=== PATIENT | female | born 1980 | race Caucasian/White ===

== ENCOUNTER 2018-04-15 11:05 | Emergency (ER) | payer MEDICAID ==
[~2018-04-15] VITALS: Ht 165.1 cm; Wt 90.0 kg
[2018-04-15] MEDS ORDERED: IBUPROFEN 800MG TABLET PO ONE (13:30)
[2018-04-15] MEDS ORDERED: ACETAMINOPHEN 325MG TABLET PO ONE (13:30)
[2018-04-15 14:35] VITALS: BP 140/82
== END 2018-04-15 14:36 | disposition home or self-care (01) ==
LOC: ER 12:07
DX: S16.1XXA Strain of muscle, fascia and tendon at neck level, initial encounter (principal); S63.611A Unspecified sprain of left index finger, initial encounter; F41.9 Anxiety disorder, unspecified; V43.52XA Car driver injured in collision with other type car in traffic accident, initial encounter; Y93.89 Activity, other specified; Y92.411 Interstate highway as the place of occurrence of the external cause
CPT/HCPCS: 73130; 99284